=== PATIENT | male | born 1980 | race American Indian/Alaskan Native ===

== ENCOUNTER 2020-11-27 06:45 | Emergency (ER) | payer MEDICAID ==
[2020-11-27] MEDS ORDERED: Ondansetron 4 MG/2 ML SDV IVPUSH ONE (07:13)
[2020-11-27] MEDS ORDERED: LORazepam 2 MG/ML SDV IVPUSH ONE (07:14)
--- NOTE | 2020-11-27 07:16 | EDM.PDOC ---
ED HPI GENERAL MEDICAL PROBLEM - General Chief Complaint: General Stated Complaint: BLOOD SUGARS Time Seen by Provider: 11/27/20 07:09 Source of Information: Reports: Patient, RN Notes Reviewed History Limitations: Reports: No Limitations - History of Present Illness INITIAL COMMENTS - FREE TEXT/NARRATIVE: 39-year-old gentleman presents emergency department day via EMS services for complaint chest pain. Does admit is under a lot of stress his mom recently last night unexpectedly he has felt short of breath chest pain nausea no vomiting feeling of impending doom, does have a history of diabetes but no history of heart disease - Related Data Allergies Allergy/AdvReac Type Severity Reaction Status Date / Time No Known Allergies Allergy Verified 11/27/20 06:50 Home Meds: Home Meds metFORMIN [Glucophage] 1,000 mg PO BIDMEALS 11/27/20 [History] Past Medical History HEENT History: Reports: Impaired Vision Cardiovascular History: Reports: High Cholesterol, Hypertension Respiratory History: Reports: Other (See Below) Other Respiratory History: lung nodule, suppose to have some test for liver cancer but never did it Genitourinary History: Reports: UTI, Recurrent Musculoskeletal History: Reports: Fracture Neurological History: Reports: Concussion Psychiatric History: Reports: ADHD, Anxiety, Depression Endocrine/Metabolic History: Reports: Diabetes, Type II Dermatologic History: Reports: Eczema - Infectious Disease History Infectious Disease History: Reports: Chicken Pox, Influenza, Shingles - Past Surgical History HEENT Surgical History: Reports: Oral Surgery Social & Family History - Tobacco Use Tobacco Use Status *Q: Current Every Day Tobacco User Years of Tobacco use: 25 Packs/Tins Daily: 1 - Caffeine Use Caffeine Use: Reports: Coffee, Energy Drinks, Soda - Recreational Drug Use Recreational Drug Use: Yes Drug Use in Last 12 Months: Yes Recreational Drug Type: Reports: Marijuana/Hashish, Methamphetamine Recreational Drug Use Frequency: Daily Recreational Drug Last Use: t-1 ED ROS GENERAL - Review of Systems Review Of Systems: See Below Constitutional: Reports: Diaphoresis HEENT: Reports: No Symptoms Respiratory: Reports: Shortness of Breath Cardiovascular: Reports: Chest Pain GI/Abdominal: Reports: Nausea. Denies: Vomiting : Reports: No Symptoms ED EXAM, GENERAL - Physical Exam Exam: See Below (History) Exam Limited By: No Limitations General Appearance: Alert, WD/WN, No Apparent Distress Respiratory/Chest: No Respiratory Distress, Lungs Clear, Normal Breath Sounds, No Accessory Muscle Use, Chest Non-Tender Cardiovascular: Regular Rate, Rhythm, No Murmur GI/Abdominal: Soft, Tender (Epigastric region) #1 Interpretation EKG Date: 11/27/20 Rhythm: NSR [place]: Normal P-Wave: Present QRS: Normal ST-T: Normal QT: Normal Comparison: NA - No Prior EKG Course - Vital Signs Last Recorded V/S: Last Vital Signs Temp 98.5 F 11/27/20 06:58 Pulse 96 11/27/20 10:41 Resp 16 11/27/20 10:41 BP 134/93 H 11/27/20 10:41 Pulse Ox 97 11/27/20 06:58 - Orders/Labs/Meds Orders: Active Orders 24 hr Category Date Time Status Cardiac Monitoring [RC] .As Directed Care 11/27/20 07:13 Active EKG Documentation Completion [RC] ASDIRECTED Care 11/27/20 07:13 Active EKG 12 Lead [EK] Stat Ther 11/27/20 07:13 Ordered Labs: Laboratory Tests 11/27/20 11/27/20 11/27/20 Range/Units 07:18 07:18 07:23 WBC 15.9 H (4.5-11.0) K/uL RBC 5.57 (4.30-5.90) M/uL Hgb 16.5 H (12.0-15.0) g/dL Hct 46.8 (40.0-54.0) % MCV 84 (80-98) fL MCH 30 (27-31) pg MCHC 35 (32-36) % Plt Count 378 (150-400) K/uL Neut % (Auto) 83 H (36-66) % Lymph % (Auto) 8 L (24-44) % Rooks % (Auto) 7 H (2-6) % Eos % (Auto) 1 L (2-4) % Baso % (Auto) 0 (0-1) % Sodium (140-148) mmol/L Potassium (3.6-5.2) mmol/L Chloride (100-108) mmol/L Carbon Dioxide (21-32) mmol/L Anion Gap (5.0-14.0) mmol/L BUN (7-18) mg/dL Creatinine (0.8-1.3) mg/dL Est Cr Clr Drug Dosing mL/min Estimated GFR (MDRD) (>60) Glucose (74-106) mg/dL POC Glucose (74-106) MG/DL Calcium (8.5-10.1) mg/dL Total Bilirubin (0.2-1.0) mg/dL AST (15-37) U/L ALT (12-78) U/L Alkaline Phosphatase (46-116) U/L Troponin I (0.000-0.056) ng/mL Total Protein (6.4-8.2) g/dL Albumin (3.4-5.0) g/dL Globulin (2.3-3.5) g/dL Albumin/Globulin Ratio (1.2-2.2) Urine Color Yellow (YELLOW) Urine Appearance Clear (CLEAR) Urine pH 7.0 (5.0-8.0) Ur Specific Waves 1.015 (1.008-1.030) Urine Protein Negative (NEGATIVE) mg/dL Urine Glucose (UA) 500 H (NEGATIVE) mg/dL Urine Ketones Negative (NEGATIVE) mg/dL Urine Occult Blood Negative (NEGATIVE) Urine Nitrite Negative (NEGATIVE) Urine Bilirubin Negative (NEGATIVE) Urine Urobilinogen 0.2 (0.2-1.0) EU/dL Ur Leukocyte Esterase Negative (NEGATIVE) Urine Opiates Screen Negative (NEGATIVE) Ur Oxycodone Screen Negative (NEGATIVE) Urine Methadone Screen Negative (NEGATIVE) Ur Propoxyphene Screen Negative (NEGATIVE) Ur Barbiturates Screen Negative (NEGATIVE) Ur Tricyclics Screen Negative (NEGATIVE) Ur Phencyclidine Scrn Negative (NEGATIVE) Ur Amphetamine Screen Negative (NEGATIVE) U Methamphetamines Scrn Presumptive positive H (NEGATIVE) Urine MDMA Screen Negative (NEGATIVE) U Benzodiazepines Scrn Negative (NEGATIVE) U Cocaine Metab Screen Negative (NEGATIVE) U Marijuana (THC) Screen Presumptive positive H (NEGATIVE) 11/27/20 11/27/20 Range/Units 07:23 09:16 WBC (4.5-11.0) K/uL RBC (4.30-5.90) M/uL Hgb (12.0-15.0) g/dL Hct (40.0-54.0) % MCV (80-98) fL MCH (27-31) pg MCHC (32-36) % Plt Count (150-400) K/uL Neut % (Auto) (36-66) % Lymph % (Auto) (24-44) % Rooks % (Auto) (2-6) % Eos % (Auto) (2-4) % Baso % (Auto) (0-1) % Sodium 131 L (140-148) mmol/L Potassium 3.8 (3.6-5.2) mmol/L Chloride 97 L (100-108) mmol/L Carbon Dioxide 23 (21-32) mmol/L Anion Gap 14.8 H (5.0-14.0) mmol/L BUN 15 (7-18) mg/dL Creatinine 0.8 (0.8-1.3) mg/dL Est Cr Clr Drug Dosing 126.74 mL/min Estimated GFR (MDRD) > 60 (>60) Glucose 417 H* (74-106) mg/dL POC Glucose 364 H (74-106) MG/DL Calcium 8.2 L (8.5-10.1) mg/dL Total Bilirubin 0.4 (0.2-1.0) mg/dL AST 13 L (15-37) U/L ALT 25 (12-78) U/L Alkaline Phosphatase 154 H (46-116) U/L Troponin I < 0.017 (0.000-0.056) ng/mL Total Protein 6.4 (6.4-8.2) g/dL Albumin 3.1 L (3.4-5.0) g/dL Globulin 3.3 (2.3-3.5) g/dL Albumin/Globulin Ratio 0.9 L (1.2-2.2) Urine Color (YELLOW) Urine Appearance (CLEAR) Urine pH (5.0-8.0) Ur Specific Waves (1.008-1.030) Urine Protein (NEGATIVE) mg/dL Urine Glucose (UA) (NEGATIVE) mg/dL Urine Ketones (NEGATIVE) mg/dL Urine Occult Blood (NEGATIVE) Urine Nitrite (NEGATIVE) Urine Bilirubin (NEGATIVE) Urine Urobilinogen (0.2-1.0) EU/dL Ur Leukocyte Esterase (NEGATIVE) Urine Opiates Screen (NEGATIVE) Ur Oxycodone Screen (NEGATIVE) Urine Methadone Screen (NEGATIVE) Ur Propoxyphene Screen (NEGATIVE) Ur Barbiturates Screen (NEGATIVE) Ur Tricyclics Screen (NEGATIVE) Ur Phencyclidine Scrn (NEGATIVE) Ur Amphetamine Screen (NEGATIVE) U Methamphetamines Scrn (NEGATIVE) Urine MDMA Screen (NEGATIVE) U Benzodiazepines Scrn (NEGATIVE) U Cocaine Metab Screen (NEGATIVE) U Marijuana (THC) Screen (NEGATIVE) Meds: Medications Discontinued Medications Generic Name Dose Route Start Last Admin Trade Name Freelsa PRN Reason Stop Dose Admin Lorazepam 0.5 mg 11/27/20 07:14 11/27/20 07:24 Ativan IVPUSH 11/27/20 07:15 0.5 mg ONETIME ONE Administration Metformin HCl 1,000 mg 11/27/20 07:56 11/27/20 08:05 Glucophage PO 11/27/20 07:57 1,000 mg ONETIME ONE Administration Ondansetron HCl 4 mg 11/27/20 07:13 11/27/20 07:24 Zofran IVPUSH 11/27/20 07:14 4 mg ONETIME ONE Administration - Re-Assessments/Exams Free Text/Narrative Re-Assessment/Exam: 11/27/20 07:56 Admits he has not been taking his medications Departure - Departure Time of Disposition: 10:53 Disposition: Home, Self-Care 01 Condition: Fair Clinical Impression: Poorly controlled diabetes mellitus, Panic attack - Discharge Information Instructions: Hyperglycemia, Panic Attack, [id number] Referrals: PCP,None [Primary Care Provider] - Forms: ED Department Discharge Additional Instructions: Recommend stopping your Lantus, recommend starting your insulin there is a long- acting insulin which you take once a day this will provide you basic coverage all the time and then short acting insulin that you will take with meals we started these doses low and you will need to adjust based upon your blood sugars please follow-up with your primary care for review when you return Sepsis Event Note (ED) - Evaluation Sepsis Screening Result: No Definite Risk - Focused Exam Vital Signs: Vital Signs Temp Pulse Resp BP Pulse Ox 11/27/20 10:41 96 16 134/93 H 11/27/20 06:58 98.5 F 104 H 20 149/95 H 97 11/27/20 06:57 98.5 F 104 H 20 149/95 H 97 - My Orders Last 24 Hours: My Active Orders 11/27/20 07:13 Cardiac Monitoring [RC] .As Directed EKG Documentation Completion [RC] ASDIRECTED EKG 12 Lead [EK] Stat - Assessment/Plan Last 24 Hours: My Active Orders 11/27/20 07:13 Cardiac Monitoring [RC] .As Directed EKG Documentation Completion [RC] ASDIRECTED EKG 12 Lead [EK] Stat Plan: Assessment Acuity = acute Site and laterality = panic attack complicated patient with poorly controlled di abetes mellitus type 2 Etiology = recent social situation combination of of family member and recent incarceration Manifestations = none Location of injury = Home Lab values = WBC elevated 15.9 consistent with leukocytosis, sodium low at 131 consistent hyponatremia glucose elevated 417 consistent with hyperglycemia after initial treatment with home medication glucose responded to 364 within 1 hour troponin was negative urine drug screen positive for methamphetamine and cannabis, EKG demonstrates a normal sinus rhythm there is no ST elevations or depressions, chest x-ray I did review films myself I cannot appreciate any acute process, the official read from radiology is pending Plan I did review lab work with him as well as his EKG and his chest x-ray results. I was able to have the client account assistant come and spend some time with him he tells me his last hemoglobin A1c was 16.9 we have set up a plan for him he was provided a meter by the hospital I am recommending he stop the Metformin he is not taking it anyway because he does not like the side effects prescriptions written for single use lancets no barrel and test strips 1 box 1 year refill also start him on medication pick the Lantus for long-acting 15 units subcu daily and then Novolin R for short acting 5 units with meals also 1 year refill have him follow-up with his primary care upon return home This note was dictated using [employer] voice recognition software please call with any questions on syntax or grammar.
[2020-11-27] MEDS ORDERED: metFORMIN 500 MG Tab PO ONE (07:56)
--- NOTE | 2020-11-27 09:19 | CR ---
CHEST: Portable 11/27/2020 at 7:32 AM CLINICAL HISTORY:Chest pain COMPARISON:None FINDINGS: The heart size, pulmonary vascularity and hilar structures are normal. No infiltrate effusion or pneumothorax is seen. There is some mild the patchy atelectasis or scarring in the right lung base. IMPRESSION: No acute cardiopulmonary process.
== END 2020-11-27 11:10 | disposition home or self-care (01) ==
LOC: JP.ED 06:45
DX: E11.65 Type 2 diabetes mellitus with hyperglycemia (principal); F41.0 Panic disorder [episodic paroxysmal anxiety]; I10 Essential (primary) hypertension; Z79.84 Long term (current) use of oral hypoglycemic drugs; Z72.0 Tobacco use
CPT/HCPCS: 36415; 71045; 80053; 80305; 81003; 82962; 84484; 85025; 93005; 96374; 96375; 99285; A9270; J2060; J2405